=== PATIENT | female | born 1985 | race Caucasian/White ===

== ENCOUNTER 2019-02-11 20:32 | Emergency (ER) | payer OTHER, SELFPAY ==
[2019-02-11 20:33] VITALS: BP 164/106; PULSE 112; RESP 18; TEMP 37.8; O2SAT 100; BMI 24.2
[2019-02-11 20:47] LABS: Bacteria 0 SEEN /hpf (None Seen); White Blood Cells 0 SEEN /hpf (0-5)
[2019-02-11 20:48] LABS: Color, Urine Yellow (Yellow); Glucose, Dipstick Normal (Normal); Leukocyte Esterase-Dipstick Negative /ul (Negative); Nitrite-Dipstick Negative (Negative); Occult Blood-Urine 25 /ul (Negative); Protein-Dipstick 15 mg/dl (Negative); Specific Gravity, Urine 1.025 (1.002-1.030); Urine Bilirubin Dipstick Negative (Negative); Urine Clarity Clear (Clear); Urine Urobilinogen Normal (Normal)
[2019-02-11 20:51] LABS: Ketone-Dipstick 150 mg/dl (Negative)
[2019-02-11 20:55] LABS: Mucous, Urine 1+ /hpf (<or=2+); Red Blood Cells-Urine 0-5 SEEN /hpf (0-5); Squamous Epithelial Cells - UA 0-5 SEEN /hpf (5-10)
--- NOTE | 2019-02-11 22:26 | CT_ITS ---
STUDY: CT ABDOMEN AND PELVIS WITHOUT CONTRAST REASON FOR EXAM: Female, 33 years old. LOWER BACK PAIN AND HEMATURIA WITH N/V RADIATION DOSAGE (If Supplied By Facility): CTDIvol = ( 6.26 ) mGy, DLP = ( 312.89 ) mGycm TECHNIQUE: Transaxial images were obtained from the dome of the diaphragm to the symphysis pubis without oral contrast, and without intravenous contrast. Sagittal and coronal images were reconstructed. Individualized dose optimization techniques were used for this CT. COMPARISON: None. FINDINGS: The visualized lung bases are unremarkable. The visualized portions of the heart are within normal limits. The lack of intravenous contrast limits evaluation of solid visceral organs. Normal liver. Normal gallbladder and extrahepatic biliary system. Normal spleen. Normal pancreas. Normal bilateral adrenal glands. Normal right kidney. There is a nonobstructing 2 mm left renal calculus. Normal visualized stomach. Normal small intestine. There are multiple colonic diverticula consistent with diverticulosis. The appendix is visualized and appears normal. Normal abdominal aorta. Normal inferior vena cava. Normal retroperitoneum. Normal urinary bladder. Normal abdominal wall. Normal osseous structures. CT/Abdomen/Pelvis without Cont IMPRESSION: Nonobstructing 2 mm left renal calculus. Electronically Signed: Melissa Osuna MD at 23:16 EST Tel , Service support ,
--- NOTE | 2019-02-11 22:27 | ED.DCSUM_ITS ---
History of Present Illness Chief Complaint: Flank Pain Informant: Patient - Abdominal Pain/Flank Pain Onset: Today Context: Sudden Onset Timing: Continuous Quality: Aching Location: - - across low back; no radiation Current Severity: Moderate Maximum Severity: Moderate Worsened by: Nothing Relieved by: Nothing - Nausea/Vomiting/Emesis GI Symptom: Nausea, Vomiting Onset: Days - 2-3 - Diarrhea/Melena/Hematochezia GI Symptom: Diarrhea Onset: Days - 3 Severity: Mild - gone now Associated Symptoms: Hematuria - w/o clots or retention. Negative for: Dysuria, Frequency, Urgency Narrative: Patient has had a cough, fever, some diarrhea, followed by some vomiting the diarrhea has stopped now. Today she had sudden onset relatively of pain in her low back that was across it and nonlateralizing, along with hematuria. No dysuria. She works at [employer] as a nurse, has been exposed to influenza, and is asking for a flu test as well. Past Medical History - Allergies and Home Meds Allergies/Adverse Reactions: Allergies No Known Allergies Allergy (Verified 02/11/19 20:36) Primary Care Physician: Javi Kang PA [Primary Care Provider] - Lives: Spouse/ Significant Other Smoking Status: Never smoker Review of Systems General: Reports: Fever, Malaise. Denies: Chills, Sweats Eyes: Denies: Visual changes - bilaterally, Diplopia ENT: Denies: Rhinorrhea, Sore throat Cardiovascular: Denies: Chest pain, Palpitations Respiratory: Denies: Dyspnea, Cough, Dyspnea on exertion Gastrointestinal: Reports: Nausea, Vomiting, Diarrhea. Denies: Abdominal pain, Melena, Hematochezia Genitourinary: Reports: Hematuria. Denies: Dysuria, Frequency Musculoskeletal: Reports: Myalgias, Back pain. Denies: Neck pain, Extremity Pain Skin: Denies: Rash, Wounds Neurological: Denies: Headache, Weakness, Numbness Physical Exam Vital Signs/Narrative: Vital Signs Temp Pulse Resp BP Pulse Ox 02/11/19 20:33 100.1 F H 112 H 18 164/106 H 100 Inital Vital Signs reviewed: Yes General: Well nourished, Well developed, No Acute Distress - Well-appearing Head: Normocephalic, Atraumatic Eyes: Perrl, EOMI ENT: Moist mucous membranes, No rhinorrhea, - - Posterior oropharynx clear Neck: Supple, Nontender, No lymphadenopathy Cardiovascular: Regular rate, Regular rhythm, No murmurs, Tachycardia Respiratory: No distress, CTA bilaterally, Chest nontender Abdomen: Soft, Nontender, Nondistended, Normal bowel sounds Back: Normal Inspection, CVA tenderness - Bilateral, mild, symmetric Extremities: Nontender, No edema Skin: Normal color, No rash, No Trauma Neurological: Alert, Oriented x3, Cranial nerves II-XII grossly intact, Normal Strength, Normal Sensation, Normal Gait Psychological: Normal affect, Normal Mood Diagnostic/Tx/Re-eval Impressions Abdomen/Pelvis CT 02/11/19 22:26 IMPRESSION: Nonobstructing 2 mm left renal calculus. Electronically Signed: Melissa Osuna MD at 23:16 EST Tel , Service support , 02/11/19 22:26 Abdomen/Pelvis without Cont [CT] Stat 02/11/19 23:25 Mucosa - Nose Influenza Types A,B Direct FA (MARSHAL) - Final Influenzae B POSITIVE Laboratory Results 02/11/19 02/11/19 02/11/19 20:40 20:45 22:30 WBC 3.3 L RBC 4.19 L Hgb 13.2 Hct 38.8 MCV 92.6 MCH 31.5 MCHC 34.0 RDW Std Deviation 42.2 RDW Coeff of Rajni 12.4 Plt Count 144 L MPV 9.5 Immature Gran % (Auto) 0.300 Neut % (Auto) 67.9 Lymph % (Auto) 17.4 L [place] % (Auto) 12.9 H Eos % (Auto) 1.2 Baso % (Auto) 0.3 Absolute Neuts (auto) 2.3 Absolute Lymphs (auto) 0.58 L Nucleated RBC % 0 Differential Comment SCANNED Diff Path Review May foll Sodium Potassium Chloride Carbon Dioxide Anion Gap BUN Creatinine Estim Creat Clear Calc Est GFR (MDRD) Af Amer Est GFR (MDRD) Non-Af BUN/Creatinine Ratio Glucose Calcium Total Bilirubin AST ALT Alkaline Phosphatase Total Protein Albumin Globulin Albumin/Globulin Ratio Urine Color Yellow Urine Clarity Clear Urine pH 6.0 Ur Specific [place] 1.025 Urine Protein 15 H Urine Glucose (UA) Normal Urine Ketones 150 H Urine Occult Blood 25 H Urine Nitrite Negative Urine Bilirubin Negative Urine Urobilinogen Normal Ur Leukocyte Esterase Negative Urine RBC 0-5 SEEN Urine WBC 0 SEEN Ur Squamous Epith Cells 0-5 SEEN Urine Bacteria 0 SEEN Urine Mucus 1+ Urine Test Negative 02/11/19 22:30 WBC RBC Hgb Hct MCV MCH MCHC RDW Std Deviation RDW Coeff of Rajni Plt Count MPV Immature Gran % (Auto) Neut % (Auto) Lymph % (Auto) King[place]isher % (Auto) Eos % (Auto) Baso % (Auto) Absolute Neuts (auto) Absolute Lymphs (auto) Nucleated RBC % Differential Comment Diff Path Review Sodium 139 Potassium 3.7 Chloride 106 Carbon Dioxide 26.0 Anion Gap 7 BUN 11 Creatinine 0.68 Estim Creat Clear Calc 92.20 Est GFR (MDRD) Af Amer 127 Est GFR (MDRD) Non-Af 105 BUN/Creatinine Ratio 16.2 Glucose 100 Calcium 8.5 Total Bilirubin 0.20 AST 27 ALT 27 Alkaline Phosphatase 59 Total Protein 7.5 Albumin 4.3 Globulin 3.2 Albumin/Globulin Ratio 1.3 Urine Color Urine Clarity Urine pH Ur Specific [place] Urine Protein Urine Glucose (UA) Urine Ketones Urine Occult Blood Urine Nitrite Urine Bilirubin Urine Urobilinogen Ur Leukocyte Esterase Urine RBC Urine WBC Ur Squamous Epith Cells Urine Bacteria Urine Mucus Urine Test - Medical Decision Making Urinalysis was obtained first and showed no sign of infection, but blood present. Therefore CT was obtained. It shows a nonobstructing 2 mm left renal stone. Unknown if this is causing her hematuria or not, should not be causing the pain in her low back. However her flu test returned positive for influenza B, this may be causing her low back pain and mimicking renal pain. Her blood work was unremarkable. negative. She is not having clots or retention. I think she can follow-up with urologist if the hematuria does not stop, or if her low back pain does not improve. 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 Pain is improved after Toradol/IV fluids/Zofran, she still feels malaised. Stable for discharge. We will give her a prescription for Zofran and tramadol in addition to Tamiflu which was started tonight. ED Disposition - Plan for ED Patient: Disposition: Home or Assisted Living Diagnosis: Influenza B, Low back pain, Hematuria, Calculus of left kidney Instructions: KIDNEY STONE, Undescended (No Symptoms), Hematuria, INFLUENZA (Adult) Prescriptions: Oseltamivir Phosphate [Tamiflu] 75 mg PO BID #9 cap Prescription Printed traMADol [Ultram] 50 mg PO Q4H PRN PRN 3 Days #15 tab PRN Reason: Pain Prescription Printed Ondansetron [Zofran] 8 mg PO Q8H PRN PRN #12 tab PRN Reason: Nausea Prescription Printed Referrals: Javi Kang PA [Primary Care Provider] - As Needed Racquel Thao MD [STAFF PHYSICIAN] - 3-5 Days if not improving
[2019-02-11 22:37] VITALS: RESP 17
[2019-02-11] MEDS: 0.9% Normal Saline 1,000 ML 999 ML IV (22:37)
[2019-02-11] MEDS: Ketorolac 30 MG/ML Syringe IV (22:40)
[2019-02-11] MEDS: Ondansetron 4 MG/2 ML Vial IV (22:40)
[2019-02-11 22:48] LABS: Absolute Lymphocyte Count 0.58 X10^3/uL (0.83-4.51); Absolute Neutrophil Count 2.3 X10^3/uL (2.0-7.7); Basophil# 0.01 X10^3/uL; Basophil% 0.3 % (0-1); Eosinophil# 0.04 X10^3/uL; Eosinophils% 1.2 % (0-5); Hematocrit 38.8 % (37-47); Hemoglobin 13.2 g/dL (12.0-15.0); Lymphocyte # 0.58 X10^3/ul (4.0); Lymphocyte % 17.4 % (19-41); Mean Corpuscular Hgb 31.5 pg (27.0-32.0); Mean Corpuscular Volume 92.6 fL (81-99); Mean Platelet Vol. 9.5 fl (6.2-12.0); Monocyte# 0.43 X10^3/uL; Monocyte% 12.9 % (0-10); NRBC Flagged by Analyzer 0 % (0-5); Neutrophil # 2.26 X10^3/uL (2.7-7.7); Neutrophil % 67.9 % (47-70); POSITIVE DIFFERENTIAL YES; Platelet Count 144 K/mm3 (150-450); RBC Distribution Width CV 12.4 % (11.6-14.6); RBC Distribution Width SD 42.2 fl (35.1-43.9); Red Blood Count 4.19 M/mm3 (4.2-5.4); White Blood Count 3.3 K/mm3 (4.4-11.0)
[2019-02-11 22:51] LABS: Differential Indicated SCAN CRITERIA MET
[2019-02-11 22:55] LABS: Internal QC Validated? YES +Cl - CLEAR BKGD; Pregnancy, Urine Negative Negative
[2019-02-11 23:03] LABS: ALB/GLOB Ratio 1.3 RATIO (0.9-2.4); AST(SGOT) 27 U/L (15-37); Alanine Aminotransfer ALT/SGPT 27 U/L (13-56); Albumin, Serum 4.3 g/dL (3.2-5.0); Alkaline Phosphatase 59 U/L (45-117); Anion Gap 7 (5-15); BUN 11 mg/dL (7-18); BUN/Creat Ratio 16.2 RATIO (10-20); Calcium,Total 8.5 mg/dL (8.5-10.1); Chloride 106 mmol/L (98-107); Creatinine, Serum 0.68 mg/dL (0.55-1.02); EST Glomerular Filtration Rate 105 mL/min (>60); Est Glom Filt Rate - Afr Amer 127 mL/min (>60); Globulin 3.2 g/dL (2.2-4.2); Glucose 100 mg/dL (74-106); Potassium 3.7 mmol/L (3.5-5.1); Protein, Total 7.5 g/dL (6.4-8.2); Sodium Level 139 mmol/L (136-145)
[2019-02-11 23:11] LABS: Differential Comment SCANNED
[2019-02-12 00:20] VITALS: BP 134/98; PULSE 88; RESP 18
[2019-02-12] MEDS: Oseltamivir Phosphate 75 MG Capsule PO (00:20)
[2019-02-12 12:25] LABS: Pathologist Review Reviewed
== END 2019-02-12 00:23 | disposition home or self-care (01) ==
PROVIDERS: Emergency Provider Emergency Medicine; Family Provider Physician Assistant; PCP Physician Assistant
DX: J11.1 Influenza due to unidentified influenza virus with other respiratory manifestations (principal); N20.0 Calculus of kidney; M54.5 Low back pain; R31.9 Hematuria, unspecified
CPT/HCPCS: 74176; 80053; 81001; 81025; 85025; 87804; 96361; 96374; 96375; 99284; J7030; A4216; J2405

== ENCOUNTER 2024-12-25 12:32 | Emergency (ER) | payer OTHER, SELFPAY ==
[2024-12-25 12:32] VITALS: BP 150/87; PULSE 102; RESP 16; TEMP 36.6; O2SAT 100
--- NOTE | 2024-12-25 13:09 | ED.VIS.GI ---
HPI HPI - GI History of Present Illness Chief Complaint: Abd Pain Informant: patient Narrative Narrative: Patient is a 39-year-old female presenting with abdominal pain and dysuria. - Abdominal pain began one week ago, initially samina-umbilical and radiating upwards; has progressed to right leg pain. - Reports constant urethral pain, not limited to urination, with onset she thinks after abdominal pain. - Took 4 days of Bactrim for presumed UTI, but symptoms persist. - Denies hematuria, increased urinary frequency, or urgency. - Denies emesis, fever, changes in appetite, or stool changes. - Reports mild nausea today, attributing it to pain. - Currently menstruating, denies vaginal discharge. - History of nephrolithiasis, no surgical interventions required. 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 [facility] Medical History (Updated 12/25/24 @ 15:[address] Sanjay Rand MD) Kidney stone Patellar tendinitis of right knee Right knee pain Home Medications ?Medication ?Instructions ?Recorded ?Last Taken ?Type dicyclomine 20 mg tablet 20 mg PO Q6H PRN PRN abdominal 12/25/24 Unknown Rx discomfort #12 tabs tramadol 50 mg tablet 50 mg PO Q6H PRN pain 3 days #12 12/25/24 Unknown Rx tabs Allergy/AdvReac Type Severity Reaction Status Date / Time Penicillins Allergy Rash Verified 12/25/24 12:34 Surgical History History of bilateral salpingectomy Social History Smoking Status: Never smoker ROS ROS ED Constitutional Constitutional ED: Denies chills or fever(s) Eyes Eyes: Denies change in vision or diplopia ENT ENT ED: Denies rhinorrhea or sore throat Cardiovascular Cardiovascular: Denies chest pain or palpitations Respiratory/Chest Respiratory/Chest: Denies cough or dyspnea Gastrointestinal Gastrointestinal: Reports abdominal pain and nausea; Denies diarrhea or vomiting Genitourinary Genitourinary ED: Reports dysuria and flank pain; Denies hematuria or urinary frequency Musculoskeletal Musculoskeletal: Reports back pain; Denies neck pain Integumentary Denies abscess or rash Neurologic Neurologic: Denies headache(s), paresthesias or weakness Psychiatric Psychiatric: Denies anxiety or suicidal thoughts EXAM Physical Exam Const Vital Signs: 12/25/24 12:32 12/25/24 14:10 Temperature 98 F 98.7 F Temperature Source Oral Oral Pulse Rate 102 H 81 Respiratory Rate 16 16 Blood Pressure 150/87 H 133/92 H Blood Pressure Mean 108 105 Pulse Ox 100 100 Oxygen Delivery Method Room Air Room Air Positive well nourished and well developed General Appearance ED: well developed and NAD HEENT Reports moist mucous membranes normocephalic and atraumatic Eyes PERRL and EOMs intact bilaterally Neck full ROM and supple Resp normal respiratory effort and clear to auscultation bilaterally Cardio regular rate, regular rhythm and no murmurs GI non-distended GI Narrative: Tender in right mid abdomen, no suprapubic or other significant tenderness negative Ceballos. Auscultation: normoactive bowel sounds Palpation: soft Back/Spine General Back: CVA tenderness right (Mild, no rash) and other FROM Extremity normal to inspection General Extremety ED: Negative for edema, pulses abnormal or tenderness General Extremity: Negative for edema or pulses abnormal Neuro oriented x3, CN's II-XII intact bilaterally and no sensory deficits noted Sensorium / Orientation: awake and alert Motor Exam: strength 5/5 throughout Skin no rashes or lesions noted and no wounds MDM MDM MDM Narrative Medical decision making narrative: Patient presents with urinary symptoms and mid-right abdominal/flank pain. She took four days of Bactrim with no improvement in symptoms but appears well with normal vital signs. She is tender in the mid-abdomen, but otherwise her exam is fairly benign. The differential diagnoses include obstructive uropathy, pyelonephritis, appendicitis, and intestinal etiologies of pain, though a biliary etiology is less likely. Her pain is not affected by diet or bowel movements, which have been normal. We performed labs, urinalysis, and a test to rule out ectopic , which was negative, then obtained a CT scan of the abdomen/pelvis without contrast. She initially declined analgesics but later received Toradol, which provided some relief. She was not in severe pain. I reviewed the CT scan, which showed no acute findings. There is an incidental 5 mm non-obstructing left nephrolith, which I discussed with the patient. There is no evidence of obstructive uropathy or pyelonephritis on the right. Her urinalysis shows no sign of acute infection, with only a trace amount of blood and a small amount of protein, possibly related to the blood. There is no gross hematuria or pyuria to suggest infection. I do not believe a culture or further antibiotics are indicated. Liver enzymes, lipase, and renal function are normal. She has no leukocytosis and remains well-appearing with normal vital signs. She has no symptoms of an STI to suggest this is pelvic inflammatory disease or Virgilio-Ricco Khai syndrome. Mesenteric adenitis may also be in the differential, the CT however was performed without IV contrast due to her urinary symptoms and better sensitivity of the scan for obstructive uropathy. Supportive care is recommended for this pain of undetermined significance and etiology. I will prescribe tramadol and dicyclomine as needed for pain until she can follow up with her primary care physician. We discussed a possible ovarian etiology, given her history of ruptured cysts, but she reports that this pain feels different and is higher in the abdomen than previous ovarian-related pain. Therefore, I do not believe an emergent ultrasound is necessary at this time, and she is comfortable with this plan. Lab Data Attestation: I reviewed the patient's lab results. Labs: Laboratory Results - last 24 hr 12/25/24 13:00 WBC 4.3 L RBC 4.45 Hgb 14.2 Hct 42.5 MCV 95.5 MCH 31.9 MCHC 33.4 RDW Std Deviation 44.5 H RDW Coeff of Rajni 12.6 Plt Count 288 MPV 9.2 Immature Gran % (Auto) 0.500 Neut % (Auto) 52.7 Lymph % (Auto) 31.1 [place] % (Auto) 13.4 H Eos % (Auto) 1.4 Baso % (Auto) 0.9 Absolute Neuts (auto) 2.2 Absolute Lymphs (auto) 1.32 Nucleated RBC % 0 Sodium 137 Potassium 3.8 Chloride 103 Carbon Dioxide 23.3 Anion Gap 11 BUN 8 Creatinine 0.66 L Est GFR (MDRD) Non-Af 114 BUN/Creatinine Ratio 12.4 Glucose 89 Calcium 9.7 Total Bilirubin 0.30 AST 25 ALT 14 Alkaline Phosphatase 63 Total Protein 7.4 Albumin 4.8 Globulin 2.6 Albumin/Globulin Ratio 1.9 Lipase 46 Urine Color Yellow Urine Clarity Clear Urine pH 6.0 Ur Specific [place] 1.025 Urine Protein 30 H Urine Glucose (UA) Normal Urine Ketones Negative Urine Occult Blood 50 H Urine Nitrite Negative Urine Bilirubin Negative Urine Urobilinogen Normal Ur Leukocyte Esterase Negative Urine RBC 0 SEEN Urine WBC 0 SEEN Ur Squamous Epith Cells 5-10 SEEN Urine Bacteria 2+ Urine Mucus 0 SEEN Urine Test Negative Radiography Diagnostic Testing: Clinical Impression(s) from Imaging Studies Abdomen/Pelvis CT 12/25/24 13:35 IMPRESSION: No acute abnormality. Reading Location: [facility] Discharge Plan Triage Chief Complaint: Abd Pain ED Provider: Sanjay Rand Dx/Rx/DC Orders Clinical Impression: Right-sided abdominal pain of unknown cause, Left nephrolithiasis Instructions: Abdominal Pain Prescriptions: New tramadol 50 mg tablet 50 mg PO Q6H PRN (Reason: pain) 3 Days Qty: 12 0RF dicyclomine 20 mg tablet 20 mg PO Q6H PRN PRN (Reason: abdominal discomfort) Qty: 12 0RF Primary Care Provider: Javi Kang Referrals: Javi Kang PA [Primary Care Provider, Internal Medicine] - 3-5 Days Activity Restrictions/Additional Instructions: - Take tramadol as prescribed for pain relief; use only when you need it. My use ibuprofen or aleve along with this if desired/needed. - Take dicyclomine as prescribed for abdominal cramping or discomfort; use only when you need it. - No additional antibiotics or urine cultures are needed at this time, as your urine test showed no active infection. - A CT scan of your abdomen and pelvis showed no acute problem; it did identify a small (5 mm) kidney stone on your left side that is not blocking urine flow or currently causing any problems. - Schedule a follow-up appointment with your regular doctor to review your symptoms and ongoing care. Print Language: Nepali Disposition Disposition: Home, Self Care
[2024-12-25 13:15] LABS: Mucous, Urine 0 SEEN /hpf (<or=2+); Red Blood Cells-Urine 0 SEEN /hpf (0-5)
[2024-12-25 13:19] LABS: Color, Urine Yellow (Yellow); Glucose, Dipstick Normal (Normal); Ketone-Dipstick Negative (Negative); Leukocyte Esterase-Dipstick Negative /ul (Negative); Nitrite-Dipstick Negative (Negative); Occult Blood-Urine 50 /ul (Negative); Protein-Dipstick 30 mg/dl (Negative); Specific Gravity, Urine 1.025 (1.002-1.030); Urine Bilirubin Dipstick Negative (Negative)
[2024-12-25 13:20] LABS: Hematocrit 42.5 % (37-47); Hemoglobin 14.2 g/dL (12.0-15.0); Immature Granulocytes Count 0.020 X10^3/uL (0.0-0.0); Mean Corp Hgb Conc 33.4 g/dL (32-36); Mean Corpuscular Volume 95.5 fL (81-99); Mean Platelet Vol. 9.2 fl (6.2-12.0); NRBC Flagged by Analyzer 0 % (0-5); Platelet Count 288 K/mm3 (150-450); RBC Distribution Width CV 12.6 % (11.6-14.6); RBC Distribution Width SD 44.5 fl (35.1-43.9); Red Blood Count 4.45 M/mm3 (4.2-5.4); White Blood Count 4.3 K/mm3 (4.4-11.0)
[2024-12-25 13:28] LABS: Internal QC Validated? YES +Cl - CLEAR BKGD; Pregnancy, Urine Negative Negative; Record Kit Lot#,Urine Preg 980607; Squamous Epithelial Cells - UA 5-10 SEEN /hpf (5-10)
--- NOTE | 2024-12-25 13:35 | CT_ITS ---
PROCEDURE: CT/Abdomen/Pelvis without Cont
[2024-12-25 14:08] LABS: AST(SGOT) 25 U/L (<=31); Alanine Aminotransfer ALT/SGPT 14 U/L (<=34); Albumin, Serum 4.8 g/dL (3.5-5.0); Alkaline Phosphatase 63 U/L (35-104); Anion Gap 11 (5-15); BUN 8 mg/dL (4-19); BUN/Creat Ratio 12.4 RATIO (10-20); Calcium,Total 9.7 mg/dL (7.6-11.0); Carbon Dioxide 23.3 mmol/L (21.0-32.0); Chloride 103 mmol/L (98-108); Globulin 2.6 g/dL (2.2-4.2); Glucose 89 mg/dL (70-99); Lipase 46 U/L (13-75); Potassium 3.8 mmol/L (3.3-5.1)
[2024-12-25 14:10] VITALS: BP 133/92; PULSE 81; RESP 16; TEMP 37.1; O2SAT 100
[2024-12-25] MEDS: Ketorolac 30 MG/ML Syringe IV (14:24)
[2024-12-25 14:25] VITALS: BMI 21.0
[2024-12-25 15:51] VITALS: BP 135/89; PULSE 87; RESP 16; TEMP 37.1; O2SAT 100
== END 2024-12-25 15:52 | disposition home or self-care (01) ==
PROVIDERS: Emergency Provider Emergency Medicine; PCP Physician Assistant; Visit Provider Emergency Medicine
DX: R10.A1 Flank pain, right side (principal); N20.0 Calculus of kidney
CPT/HCPCS: 74176; 80053; 81001; 81025; 83690; 85025; 96374; 99284; A4216

== ENCOUNTER → 2025-02-14 | Outpatient (CLI) | payer OTHER, SELFPAY ==
[2025-02-15 21:07] LABS: HPV APTIMA, High Risk Negative (Negative)
== END | disposition home or self-care (01) ==
LOC: LABSPEC 12:14
PROVIDERS: Visit Provider Nurse Practitioner Family
DX: Z12.4 Encounter for screening for malignant neoplasm of cervix (principal)
CPT/HCPCS: 87624; 88175; G0145